=== PATIENT | male | born 1980 | race Two or more races ===

== ENCOUNTER 2017-02-08 20:51 | Observation (INO) | payer OTHER ==
--- NOTE | 2017-02-08 21:18 | PDOC ---
Rapid Medical Evaluation Chief Complaint: Chest Pain Time Seen by Provider: 02/08/17 21:04 Medical Evaluation: Allergies Allergy/AdvReac Type Severity Reaction Status Date / Time No Known Allergies Allergy Verified 02/08/17 21:03 Vital Signs Temp Pulse Resp BP Pulse Ox 98.1 F 99 H 20 146/93 98 02/08/17 21:04 02/08/17 21:04 02/08/17 21:04 02/08/17 21:04 02/08/17 21:04 02/08/17 21:09 I have performed a brief in-person evaluation of this patient. The patient presents with a chief complaint of left sided numbness and chest pain for 2 hours. Pertinent physical exam findings: Neuro: decreased sensation to left upper and lower extremities. Difficulty with rapid alternating movements with left upper extremity. Rapid alternating movements of right hand WNL. PULM: Respirations even and unlabored. CTAB. Speaking full sentences. Cards: S1S2 present. RRR. No murmur, rub or gallop. I have ordered the the following: CBC, CMP, PT/INR, UA, T&S, lipid panel, BGM, Stat head CT The patient will proceed to the ED for further evaluation.
[2017-02-08 21:46] LABS: BASOPHIL 0.8 % (0-2.0); EOSINOPHIL 5.3 % (0-4.5); MCH 30.1 pg (25.7-33.7); MCHC 33.8 g/dl (32.0-35.9); MEAN CELL VOLUME 89.3 fl (80-96); MEAN PLT VOLUME 9.4 fl (7.5-11.1); NEUTROPHILS 57.3 % (42.8-82.8); PLATELET COUNT 220 K/MM3 (134-434); RDW 13.4 % (11.9-15.9); WHITE BLOOD COUNT 6.8 K/mm3 (4.0-10.0)
[2017-02-08 22:07] LABS: PROTHROMBIN TIME (PATIENT) 11.3 SEC (9.98-11.88)
[2017-02-08 22:11] LABS: ALBUMIN 3.7 g/dl (3.4-5.0); ANION GAP 7 (8-16); BILIRUBIN,TOTAL 0.3 mg/dL (0.2-1.0); CALCIUM 8.4 mg/dL (8.5-10.1); CHOLESTEROL 201 mg/dL (50-200); CO2 27 mmol/L (21-32); CREATININE 1.3 mg/dL (0.7-1.3); GLUCOSE,RANDOM 122 mg/dL (74-106); SGOT/AST 19 U/L (15-37); SGPT/ALT 27 U/L (12-78); TOT PROT 7.4 g/dl (6.4-8.2)
[2017-02-08 22:12] LABS: ALK PHOS 66 U/L (45-117)
[2017-02-08 23:11] LABS: TROPONIN I 0.02 ng/ml (0.00-0.05)
[2017-02-08] MEDS ORDERED: ASPIRIN 81 MG CHEWABLE TABLETS PO ONE (23:22)
--- NOTE | 2017-02-09 00:03 | PDOC ---
History of Present Illness <Chato Christianson - Last Filed: 02/09/17 01:21> <Tyra Dixon - Last Filed: 02/09/17 01:31> - General Chief Complaint: Chest Pain Stated Complaint: CHEST PAIN Time Seen by Provider: 02/08/17 21:04 - History of Present Illness Initial Comments: 02/09/17 00:03 Patient is a 36 y/o M with past medical history of nonischemic cardiomyopathy, chronic systolic heart failure who presents with left sided chest/axillary pain , sharp and stabbing in character, lasting for the past several hours, nonpleuritic, intermittent, with associated left forearm numbness. Denies nausea , vomiting, diarrhea. SHx: occasional alcohol use (Tyra Dixon) Past History - Past Medical History Asthma: Yes Cardiac Disorders: Yes COPD: No - Family Disease History Family Disease History: CA: Mother - Suicide/Smoking/Psychosocial Hx Smoking History: Never smoked Have you smoked in the past 12 months: No Information on smoking cessation initiated: No Hx Alcohol Use: No Drug/Substance Use Hx: No Substance Use Type: None <Chato Christianson - Last Filed: 02/09/17 01:21> <Tyra Dixon - Last Filed: 02/09/17 01:31> - Past Medical History Allergies/Adverse Reactions: Allergies Allergy/AdvReac Type Severity Reaction Status Date / Time No Known Allergies Allergy Verified 02/08/17 21:03 Home Medications: Ambulatory Orders Lisinopril [Prinivil] 10 mg PO DAILY 02/08/17 Metoprolol Tartrate [Lopressor] 50 mg PO DAILY 02/08/17 Review of Systems <Chato Christianson - Last Filed: 02/09/17 01:21> <Tyra Dixon - Last Filed: 02/09/17 01:31> - Review of Systems Comments:: 02/09/17 00:03 CONSTITUTIONAL: No fever, no chills, no fatigue EYES: No visual changes ENT: No ear pain, no sore throat CARDIOVASCULAR: (+) left sided chest/axillary pain. No palpitations RESPIRATORY: No cough, no SOB GI: No abdominal pain, no nausea, no vomiting, no constipation, no diarrhea GENITOURINARY: No dysuria, no frequency, no hematuria MUSCULOSKELETAL: No back pain, no joint pain, no myalgias SKIN: No rash NEURO: (+) left arm numbness. No headache (Tyra Dixon) *Physical Exam <Chato Christianson - Last Filed: 02/09/17 01:21> <Tyra Dixon - Last Filed: 02/09/17 01:31> - Vital Signs Last Vital Signs Temp Pulse Resp BP Pulse Ox 98.1 F 99 H 20 146/93 100 02/08/17 21:04 02/08/17 21:04 02/08/17 21:04 02/08/17 21:04 02/08/17 21:12 - Physical Exam Comments: 02/09/17 00:04 CONSTITUTIONAL: Well-appearing; well-nourished; in no apparent distress HEAD: Normocephalic; atraumatic EYES: PERRL; EOM intact ENMT: External appears normal; normal oropharynx NECK: Supple; nontender; no cervical lymphadenopathy CARD: Normal S1, S2; no murmurs, rubs, or gallops RESP: Normal chest excursion with respiration; breath sounds clear and equal bilaterally; no wheezes, rhonchi, or rales ABD: Soft, non-distended; non-tender; no palpable organomegaly, no palpable hernias EXT: Normal ROM in all four extremities; non-tender to palpation; distal pulses intact SKIN: Warm, dry, no rash NEURO: No focal neurological deficiencies. (Tyra Dixon) Heart Score/ECG Review - History History: Slightly suspicious - Electrocardiogram EKG: Non specific repolarization disturbance - Age Age: </= 45 - Risk Factors Risk Factors Heart Score: Yes Hx Hypercholesterolemia Based on the list above the patient has:: 1-2 risk factors - Troponin Troponin: </= normal limit - Score Heart Score - Total: 2 <Chato Christianson - Last Filed: 02/09/17 01:21> <Tyra Dixon - Last Filed: 02/09/17 01:31> #1 02/09/17 01:31 Sinus rhythm with occasional premature ventricular complexes. Low voltage QRS. T wave abnormality, consider inferolateral ischemia. (Tyra Dixon) ED Treatment Course - LABORATORY CBC & Chemistry Diagram: 02/08/17 21:31 02/08/17 21:31 <Chato Christianson - Last Filed: 02/09/17 01:21> - LABORATORY CBC & Chemistry Diagram: 02/08/17 21:31 02/08/17 21:31 <Tyra Dixon - Last Filed: 02/09/17 01:31> - ADDITIONAL ORDERS Additional order review: Laboratory Results 02/08/17 02/08/17 02/08/17 22:45 22:20 21:31 PT with INR INR Sodium Potassium Chloride Carbon Dioxide Anion Gap BUN Creatinine Creat Clearance w eGFR POC Glucometer Random Glucose Calcium Magnesium 2.0 Total Bilirubin AST ALT Alkaline Phosphatase Creatine Kinase 245 Creatine Kinase Index 0.6 CK-MB (CK-2) 1.535 Troponin I 0.02 Total Protein Albumin Triglycerides Cholesterol Total LDL Cholesterol HDL Cholesterol Blood Type O POSITIVE Antibody Screen Negative 02/08/17 02/08/17 02/08/17 21:31 21:31 21:31 PT with INR 11.30 INR 1.00 Sodium 140 Potassium 3.7 Chloride 106 Carbon Dioxide 27 Anion Gap 7 L BUN 11 Creatinine 1.3 Creat Clearance w eGFR > 60 POC Glucometer Random Glucose 122 H D Calcium 8.4 L Magnesium Total Bilirubin 0.3 D AST 19 D ALT 27 D Alkaline Phosphatase 66 D Creatine Kinase Creatine Kinase Index CK-MB (CK-2) Troponin I Total Protein 7.4 Albumin 3.7 Triglycerides 145 Cholesterol 201 H Total LDL Cholesterol 113 H HDL Cholesterol 57 Blood Type Antibody Screen 02/08/17 21:12 PT with INR INR Sodium Potassium Chloride Carbon Dioxide Anion Gap BUN Creatinine Creat Clearance w eGFR POC Glucometer 113.97276 Random Glucose Calcium Magnesium Total Bilirubin AST ALT Alkaline Phosphatase Creatine Kinase Creatine Kinase Index CK-MB (CK-2) Troponin I Total Protein Albumin Triglycerides Cholesterol Total LDL Cholesterol HDL Cholesterol Blood Type Antibody Screen 02/08/17 02/08/17 21:31 21:12 RBC 4.09 MCV 89.3 MCHC 33.8 RDW 13.4 MPV 9.4 Neutrophils % 57.3 Lymphocytes % 27.5 D Monocytes % 9.1 Eosinophils % 5.3 H Basophils % 0.8 POC Glucometer 113.11136 - Medications Given in the ED: ED Medications Discontinued Medications Generic Name Dose Route Start Last Admin Trade Name Freq PRN Reason Stop Dose Admin Aspirin 162 mg 02/08/17 23:22 02/09/17 00:21 Asa - PO 02/08/17 23:23 162 mg ONCE ONE Administration Medical Decision Making <Chato Christianson - Last Filed: 02/09/17 01:21> <Tyra Dixon - Last Filed: 02/09/17 01:31> - Medical Decision Making 02/09/17 01:23 36-year-old male with history of nonischemic cardiomyopathy, diffuse left ventricular hypokinesis by echo in 2013 with calculated EF of 40% complains of atypical left-sided chest discomfort with left arm paresthesias for the past several hours prior to arrival. EKG reveals no evidence of acute ischemia, persistent T wave inversions are noted anteriorly and laterally, low-voltage QRS is noted throughout. Chest x-ray reveals no evidence of cardiomegaly/ effusion/infiltrate. First set of cardiac enzymes is within normal limit. Heart score is noted to be 2. Will place and telemetry of with cardiology consultation further evaluation and treatment. (Chato Christianson) *DC/Admit/Observation/Transfer - Discharge Dispostion Admit: Yes <Chato Christianson - Last Filed: 02/09/17 01:21> <Tyra Dixon - Last Filed: 02/09/17 01:31> Diagnosis at time of Disposition: Chest pain Qualifiers: Chest pain type: unspecified Qualified Code(s): R07.9 - Chest pain, unspecified Cardiomyopathy Qualifiers: Cardiomyopathy type: unspecified Qualified Code(s): I42.9 - Cardiomyopathy, unspecified - Attestations Scribe Attestion: 02/09/17 00:04 Documentation prepared by Tyra Dixon, acting as medical staff credentialing coordinator for Chato Christianson MD. (Tyra Dixon) Physician Attestion: 02/09/17 01:21 The documentation was prepared by the scribe under my direct supervision. I have reviewed the documentation which correctly represents the findings, medical decision-making and critical action taken by me. (Chato Christianson)
--- NOTE | 2017-02-09 02:40 | HP ---
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 Patient noticed a sharp pain while at rest, transient lasting a few seconds, non-radiating and self limiting with no known precipitating factors. There was no associated n/v,BUTT, no SOB, no seizures, loss of consciousness or weakness of any part of his body, but he noticed an associated transient numbness of the distal aspect of his LUE, but no difficulty moving any part of his body. There was no change in his speech. The incidence was witnessed by his who asked him to present at the ER. Pt has never had similar symptoms in the past. Patient is unaware of any prior cardiac event in the past, as his cardiac diagnosis was picked up on a routine physical. He has not increased his physical activity level of late, was active in the gym in November but currently works two jobs and has not been that active. No hx of fever, no cough, no abdominal pain, leg swelling or weight gain, no dysuria. ER course was notable for: (1) CT head--ve (2) EKG- Sinus rhythm, QTc-414, with occassional PVCs, Twave abnormality, consider inferolateral ischemia (similar to 2014) (3) trops x1--ve 4) ASA-162mg -given 5) CXR Recent Travel: None PAST MEDICAL HISTORY: non ischemic cardiomyopathy, chronic systolic heart failure, asthma PAST SURGICAL HISTORY: None Social History: Lives with Smoking:Never Alcohol:Occasional (last drink Monday) Drugs: Not current user Family History: Mother of Lung cancer at 41 Siblings healthy- no heart disease Preventive: Had colonoscopy September 2016- pt says was normal Did not get flu shot Allergies No Known Allergies Allergy (Verified 02/08/17 21:03) HOME MEDICATIONS: Home Medications Medication Instructions Recorded Lisinopril [Prinivil] 10 mg PO DAILY 02/08/17 Metoprolol Tartrate [Lopressor] 50 mg PO DAILY 02/08/17 REVIEW OF SYSTEMS CONSTITUTIONAL: Absent: fever, chills, diaphoresis, generalized weakness, malaise, loss of appetite, weight change HEENT: Absent: rhinorrhea, nasal congestion, throat pain, throat swelling, difficulty swallowing, mouth swelling, ear pain, eye pain, visual changes CARDIOVASCULAR: Absent: chest pain+, syncope, palpitations, irregular heart rate, lightheadedness, peripheral edema RESPIRATORY: Absent: cough, shortness of breath, dyspnea with exertion, orthopnea, wheezing, stridor, hemoptysis GASTROINTESTINAL: Absent: abdominal pain, abdominal distension, nausea, vomiting, diarrhea, constipation, melena, hematochezia GENITOURINARY: Absent: dysuria, frequency, urgency, hesitancy, hematuria, flank pain, genital pain MUSCULOSKELETAL: Absent: myalgia, arthralgia, joint swelling, back pain, neck pain SKIN: Absent: rash, itching, pallor HEMATOLOGIC/IMMUNOLOGIC: Absent: easy bleeding, easy bruising, lymphadenopathy, frequent infections ENDOCRINE: Absent: unexplained weight gain, unexplained weight loss, heat intolerance, cold intolerance NEUROLOGIC: Absent: headache, focal weakness or paresthesias+, dizziness, unsteady gait, seizure, mental status changes, bladder or bowel incontinence PSYCHIATRIC: Absent: anxiety, depression, suicidal or homicidal ideation, hallucinations. PHYSICAL EXAMINATION Initial Vital Signs Temp Pulse Resp BP Pulse Ox 98.1 F 99 H 20 146/93 98 02/08/17 21:04 02/08/17 21:04 02/08/17 21:04 02/08/17 21:04 02/08/17 21:04 GENERAL: Pleasant gentleman, awake, alert, and fully oriented, in no acute distress. HEAD: Normal with no signs of trauma. EYES: Pupils equal, round and reactive to light, extraocular movements intact, sclera anicteric, conjunctiva clear. No lid lag. EARS, NOSE, THROAT: oropharynx clear without exudates, no deviation of the tongue or uvula. Moist mucous membranes. NECK: Normal range of motion, supple,no JVD, no carotid bruit. LUNGS: Breath sounds equal, clear to auscultation bilaterally. No wheezes, and no crackles. No accessory muscle use. HEART: Tachycardic, S1 and S2, irregular. LLSB 2/6 systolic murmur , no change with inspiration, increased with leg lift ABDOMEN: Soft, nontender, not distended, normoactive bowel sounds, no guarding, no rebound, no masses. MUSCULOSKELETAL: Normal range of motion at all joints. UPPER EXTREMITIES: 2+ pulses, warm, well-perfused. No cyanosis. No clubbing. No peripheral edema. LOWER EXTREMITIES: 2+ pulses, warm, well-perfused. No calf tenderness. No peripheral edema. NEUROLOGICAL: Normal power, tone, reflexes and sensation globally. Normal speech. PSYCHIATRIC: Cooperative. Good eye contact. Appropriate mood and affect. ASSESSMENT/PLAN: #Atypical chest pain R/O ACS -Non exertional, no associated SOB, sharp in nature, left side of chest, No acute EKG changes -pt has non ischemic cardiomyopathy -follows a cooker sulfate -ASA- given -resume metoprolol 50mg daily -resume lisinopril 10mg daily -Cardiology consult -echo -trops x1, repeat - continuos cardiac monitoring -CXR- negative -TSH -Monitor electrolytes #Numbness of LUE -transient R/O TIA -CT head--ve -Neuro exam -monitor #Non ischemic cardiomyopathy Continue metoprolol and lisinopril Monitor Counseling on following up with his cooker sulfate #Hyperlipidemia Not on statins Diet and exercise counseling #Asthma Not in acute exacerbation Uses ventolin at home PRN Monitor #Hyperglycemia BGMs #Elevated blood pressure Continue metoprolol and lisinopril #FEN Oral fluids Monitor electrolytes Regular diet #Prophylaxis Early ambulation Monitor #Dispo Obs-Tele Visit type - Emergency Visit Emergency Visit: Yes ED Registration Date: 02/09/17 Care time: The patient presented to the Emergency Department on the above date and was hospitalized for further evaluation of their emergent condition. - New Patient This patient is new to me today: Yes Date on this admission: 02/09/17 - Critical Care Critical Care patient: No
--- NOTE | 2017-02-09 03:40 | PN ---
Teaching Attending Note Name of Resident: Yesenia Shoemaker ATTENDING PHYSICIAN STATEMENT I saw and evaluated the patient. I reviewed the resident's note and discussed the case with the resident. I agree with the resident's findings and plan as documented. SUBJECTIVE: 36 y/o male with h/o dilated cardiomyopathy presented to ED with compliant of left sided chest pain for few seconds at rest while watching TV pain radiated to left arm. Denies palpitations, nausea, or diaphoresis. No dyspnea on exertion, orthopnea or decreased exercise tolerance. Last ECHO 2013 reported EF 40%. OBJECTIVE: GEN: A&Ox3 in NAD HEENT: NC, AT, PERRLA, EOMI, oral mucosa moist, no JVD LUNGS: CTA, no wheezing CVS: RRR, S1, S2 no murmur appreciated Abd: Soft, NT, ND, BS+ Ext: nl rom , no edema CBCD WBC 6.8 K/mm3 (4.0-10.0) 02/08/17 21:31 RBC 4.09 M/mm3 (4.00-5.60) 02/08/17 21:31 Hgb 12.3 GM/dL (11.7-16.9) D 02/08/17 21:31 Hct 36.6 % (35.4-49) D 02/08/17 21:31 MCV 89.3 fl (80-96) 02/08/17 21:31 MCHC 33.8 g/dl (32.0-35.9) 02/08/17 21:31 RDW 13.4 % (11.9-15.9) 02/08/17 21:31 Plt Count 220 K/MM3 (134-434) 02/08/17 21:31 MPV 9.4 fl (7.5-11.1) 02/08/17 21:31 CMP Sodium 140 mmol/L (136-145) 02/08/17 21:31 Potassium 3.7 mmol/L (3.5-5.1) 02/08/17 21:31 Chloride 106 mmol/L (98-107) 02/08/17 21:31 Carbon Dioxide 27 mmol/L (21-32) 02/08/17 21:31 Anion Gap 7 (8-16) L 02/08/17 21:31 BUN 11 mg/dL (7-18) 02/08/17 21:31 Creatinine 1.3 mg/dL (0.7-1.3) 02/08/17 21:31 Creat Clearance w eGFR > 60 (>60) 02/08/17 21:31 Random Glucose 122 mg/dL (74-106) H D 02/08/17 21:31 Calcium 8.4 mg/dL (8.5-10.1) L 02/08/17 21:31 Total Bilirubin 0.3 mg/dL (0.2-1.0) D 02/08/17 21:31 AST 19 U/L (15-37) D 02/08/17 21:31 ALT 27 U/L (12-78) D 02/08/17 21:31 Alkaline Phosphatase 66 U/L (45-117) D 02/08/17 21:31 Total Protein 7.4 g/dl (6.4-8.2) 02/08/17 21:31 Albumin 3.7 g/dl (3.4-5.0) 02/08/17 21:31 CARDIAC ENZYMES Creatine Kinase 245 IU/L (39-308) 02/08/17 22:20 Troponin I 0.02 ng/ml (0.00-0.05) 02/08/17 22:20 ASSESSMENT AND PLAN: Chest pain r/o ACS 2 sets of troponins negative, ACS ruled out and presentation is atypical. ECHO and cardiology evaluation. Aspirin given. Continue home medications lisinopril and metoprolol and consider adding statin.
[2017-02-09 04:25] VITALS: BMI 25.7
--- NOTE | 2017-02-09 06:38 | HP ---
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 Pain is new, sharp and stabbing, intermittent , not associated with respiration and w/o agravating or alleviating factors. It started while at rest. Patient denies diaphoresis, palpitations, sob, cough, recent weight gain, poor appetite or LE edema. His last TTE was in 2013 EF 40%. He last cardiology visit was last year. He is compliant with home cardiac meds. SHx: occasional alcohol use ER course was notable for: (1)labs (2)ekg, cxr (3)asa Recent Travel:denies PAST MEDICAL HISTORY:as above PAST SURGICAL HISTORY: cardiac cath Social History:lives with Smoking:denies Alcohol: heady drinking for 3 years in early 's. now drinks occasionally Drugs: denies Family History: Allergies No Known Allergies Allergy (Verified 02/08/17 21:03) HOME MEDICATIONS: Home Medications Medication Instructions Recorded Lisinopril [Prinivil] 10 mg PO DAILY 02/08/17 Metoprolol Tartrate [Lopressor] 50 mg PO DAILY 02/08/17 REVIEW OF SYSTEMS CONSTITUTIONAL: Absent: fever, chills, malaise, loss of appetite, weight change HEENT: Absent: rhinorrhea, nasal congestion, throat pain CARDIOVASCULAR: Absent: syncope, palpitations, irregular heart rate, lightheadedness, peripheral edema RESPIRATORY: Absent: cough, shortness of breath, dyspnea with exertion, orthopnea, wheezing, stridor, hemoptysis GASTROINTESTINAL: Absent: abdominal pain, abdominal distension, nausea, vomiting, diarrhea, constipation, melena, hematochezia GENITOURINARY: Absent: dysuria MUSCULOSKELETAL: Absent:back pain, neck pain SKIN: Absent: rash, itching, pallor HEMATOLOGIC/IMMUNOLOGIC: Absent: easy bleeding, easy bruising ENDOCRINE: Absent: unexplained weight gain, unexplained weight loss, heat intolerance, cold intolerance NEUROLOGIC: Absent: headache, focal weakness PSYCHIATRIC: Absent: anxiety, depression PHYSICAL EXAMINATION Vital Signs - 24 hr 02/09/17 02/09/17 02:59 03:20 Temperature 97.9 F Pulse Rate 87 Pulse Rate [ 83 Apical] Respiratory 18 18 Rate Blood Pressure 127/87 Blood Pressure 141/73 [Right Arm] O2 Sat by Pulse 98 98 Oximetry (%) GENERAL: Awake, alert, and fully oriented, in no acute distress. HEAD: Normal with no signs of trauma. EYES: Pupils equal, round and reactive to light, extraocular movements intact, sclera anicteric, conjunctiva clear. No lid lag. EARS, NOSE, THROAT: Moist mucous membranes. NECK: supple without JVD LUNGS: Breath sounds equal, clear to auscultation bilaterally. HEART: Regular rate and rhythm, normal S1 and S2 ABDOMEN: Soft, nontender, not distended, normoactive bowel sounds, no guarding, no rebound, no masses. MUSCULOSKELETAL: No CVA tenderness. UPPER EXTREMITIES: 2+ pulses, warm, well-perfused. No peripheral edema. LOWER EXTREMITIES: 2+ pulses, warm, well-perfused. No calf tenderness. No peripheral edema. NEUROLOGICAL: Cranial nerves II-XII grossly intact. Normal speech. PSYCHIATRIC: Cooperative. Good eye contact. SKIN: Warm, dry Laboratory Results - last 24 hr 02/09/17 03:55 Troponin I 0.02 ASSESSMENT/PLAN: This is a 36 yo M with PMH of idiopathic nonischemic cardiomyopathy with systolic heart failure (cath negative, dx 2010), who presents with left sided CP radiating to L arm (numbness). Chest pain in setting of nonischemic cardiomyopathy with moderately reduced EF -EKG unremarkable for acs, no change from prior -trop neative x1; trend one more -likely musculoskeletal -tele monioring -cardio consult -TTE -continue beta michael, acei -low na diet Dispo: obs tele Problem List - Problem (1) Cardiomyopathy Code(s): I42.9 - CARDIOMYOPATHY, UNSPECIFIED Qualifiers: Cardiomyopathy type: unspecified Qualified Code(s): I42.9 - Cardiomyopathy, unspecified; I42.9 - Cardiomyopathy, unspecified; I42.9 - Cardiomyopathy, unspecified; I42.9 - Cardiomyopathy, unspecified (2) Chest pain Code(s): R07.9 - CHEST PAIN, UNSPECIFIED Qualifiers: Chest pain type: unspecified Qualified Code(s): R07.9 - Chest pain, unspecified; R07.9 - Chest pain, unspecified (3) Costochondral chest pain Code(s): R07.1 - CHEST PAIN ON BREATHING Visit type - Emergency Visit Emergency Visit: Yes ED Registration Date: 02/09/17 Care time: The patient presented to the Emergency Department on the above date and was hospitalized for further evaluation of their emergent condition. - New Patient This patient is new to me today: Yes Date on this admission: 02/09/17 - Critical Care Critical Care patient: No
[2017-02-09 07:04] LABS: MCH 29.9 pg (25.7-33.7); MCHC 33.6 g/dl (32.0-35.9); MEAN PLT VOLUME 9.4 fl (7.5-11.1); PLATELET COUNT 192 K/MM3 (134-434); RDW 13.7 % (11.9-15.9); WHITE BLOOD COUNT 5.4 K/mm3 (4.0-10.0)
[2017-02-09 07:46] LABS: ANION GAP 7 (8-16); CALCIUM 8.3 mg/dL (8.5-10.1); CO2 29 mmol/L (21-32); CREATININE 1.2 mg/dL (0.7-1.3); GLUCOSE,RANDOM 83 mg/dL (74-106); MAGNESIUM 2.2 mg/dL (1.8-2.4); PHOSPHOROUS 4.4 mg/dL (2.5-4.9)
[2017-02-09] MEDS ORDERED: LISINOPRIL 10 MG TABLET (FP) PO SCH (10:00)
[2017-02-09] MEDS ORDERED: METOPROLOL TARTRATE 50 MG TABLET (FP) PO SCH (10:00)
[2017-02-09 10:23] LABS: URINE APPEARANCE CLEAR; URINE BILIRUBIN NEGATIVE (NEGATIVE); URINE BLOOD NEGATIVE (NEGATIVE); URINE COLOR LTYELLOW; URINE GLUCOSE (UA) NEGATIVE (NEGATIVE); URINE KETONE NEGATIVE (NEGATIVE); URINE NITRITE NEGATIVE (NEGATIVE); URINE PROTEIN NEGATIVE (NEGATIVE); URINE UROBILINOGEN NEGATIVE mg/dL (0.2-1.0)
[2017-02-09 10:38] LABS: THYROID STIMULATING HORMONE 2.34 uIU/ml (0.358-3.74)
[2017-02-09 13:19] VITALS: BP 102/57; PULSE 86; TEMP 98
--- NOTE | 2017-02-09 15:00 | CON.CARD ---
Consult Consult Specialty:: Cardiology Referred by:: Sia Reason for Consultation:: chest pain - History of Present Illness Chief Complaint: Chest pain History of Present Illness: 36 year old male with a pmhx of nonischemic cardiomyopathy presenting with chest pain. Patient was home watching television when felt mild left sided near axilla chest which lasted seconds. [place] a tingling in left hand. Denies any sob, diaphoresis, or palpitations. No chest pain since. No chest pain recently and reports that he walks very often and long distances with no complaints. No pnd, orthopnea, or edema. Follows with Crushing Machine Operator yearly at [place]. Reports had cardiac cath when first diagnosed in 2010 and was told cath showed no blockages. EF 40% in past. 36 y/o male with h/o dilated cardiomyopathy presented to ED with compliant of left sided chest pain for few seconds at rest while watching TV pain radiated to left arm. Denies palpitations, nausea, or diaphoresis. No dyspnea on exertion , orthopnea or decreased exercise tolerance. Last ECHO 2013 reported EF 40%. - History Source History Provided By: Patient, Medical Record - Alcohol/Substance Use Hx Alcohol Use: No - Smoking History Smoking history: Never smoked Have you smoked in the past 12 months: No Home Medications - Allergies Allergies/Adverse Reactions: Allergies Allergy/AdvReac Type Severity Reaction Status Date / Time No Known Allergies Allergy Verified 02/08/17 21:03 - Home Medications Home Medications: Ambulatory Orders Lisinopril [Prinivil] 10 mg PO DAILY 02/08/17 Metoprolol Tartrate [Lopressor] 50 mg PO DAILY 02/08/17 Vital Signs: Vital Signs Temperature 98 F 02/09/17 13:15 Pulse Rate 86 02/09/17 13:15 Respiratory Rate 16 02/09/17 13:15 Blood Pressure 102/57 02/09/17 13:15 O2 Sat by Pulse Oximetry (%) 98 02/09/17 03:20 Constitutional: Yes: No Distress Eyes: Yes: WNL HENT: Yes: Atraumatic Neck: Yes: Supple, Trachea Midline Respiratory: Yes: CTA Bilaterally Gastrointestinal: Yes: Normal Bowel Sounds, Soft Cardiovascular: Yes: Regular Rate and Rhythm JVD: No Carotid Bruit: No PMI: Non-Displaced Heart Sounds: Yes: S1, S2 Murmur: No: Systolic Murmur Edema: No - Other Data Labs, Other Data: CBC, BMP 02/09/17 05:28 02/09/17 05:28 INR, PTT INR 1.00 (0.82-1.09) 02/08/17 21:31 Troponin, BNP 02/09/17 03:55 Troponin I 0.02 Troponin, BNP 02/09/17 03:55 Troponin I 0.02 Imaging - Results Chest X-ray: Report Reviewed EKG: Image Reviewed Problem List - Problems (1) Cardiomyopathy Code(s): I42.9 - CARDIOMYOPATHY, UNSPECIFIED Qualifiers: Cardiomyopathy type: unspecified Qualified Code(s): I42.9 - Cardiomyopathy, unspecified; I42.9 - Cardiomyopathy, unspecified; I42.9 - Cardiomyopathy, unspecified; I42.9 - Cardiomyopathy, unspecified (2) Chest pain Code(s): R07.9 - CHEST PAIN, UNSPECIFIED Qualifiers: Chest pain type: unspecified Qualified Code(s): R07.9 - Chest pain, unspecified; R07.9 - Chest pain, unspecified Assessment/Plan 36 year old male with a pmhx of nonischemic cardiomyopathy presenting with chest pain. Patient was home watching television when felt mild left sided near axilla chest which lasted seconds. [place] a tingling in left hand. Denies any sob, diaphoresis, or palpitations. No chest pain since. No chest pain recently and reports that he walks very often and long distances with no complaints. No pnd, orthopnea, or edema. Follows with Crushing Machine Operator yearly at [place]. Reports had cardiac cath when first diagnosed in 2010 and was told cath showed no blockages. EF 40% in past. 1) Chest pain -Symptoms are very atypical and only lasted seconds. EKG sinus rhythm with inferolateral TWI but unchanged from previous ekgs in past CE's negative Walked several laps on floor with no issues or symptoms. CXR no acute pathology Echocardiogram with mild reduced LVEF 48%. No further cardiac work up at this time. Has follow up on 02/21/17 with his pharmacy technician program director 2) Chronic systolic CHF -No signs of chf on exam or cxr. Continue metoprolol 50mg and lisinopril 10mg as bp with no room to increase at this time. LVEF 48% on echo No arrhythmias on tele. Follow up with his pharmacy technician program director on 02/21/17 No further cardiac testing at this time. Please call back with any questions or concerns/clinical changes
--- NOTE | 2017-02-09 15:13 | DS ---
Physical Exam: SUBJECTIVE: Patient seen and examined OBJECTIVE: Vital Signs Period Temp Pulse Resp BP Sys/Carvajal Pulse Ox Last 24 Hr 97.9 F-98.1 F 82-87 16-18 102-141/57-87 98-98 PHYSICAL EXAM GENERAL: The patient is awake, alert, and fully oriented, in no acute distress. HEAD: Normal with no signs of trauma. EYES: PERRL, extraocular movements intact, sclera anicteric, conjunctiva clear. ENT: Ears normal, nares patent, oropharynx clear without exudates, moist mucous membranes. NECK: Trachea midline, full range of motion, supple. LUNGS: Breath sounds equal, clear to auscultation bilaterally, no wheezes, no crackles, no accessory muscle use. HEART: Regular rate and rhythm, S1, S2 without murmur, rub or gallop. ABDOMEN: Soft, nontender, nondistended, normoactive bowel sounds, no guarding, no rebound, no hepatosplenomegaly, no masses. EXTREMITIES: 2+ pulses, warm, well-perfused, no edema. NEUROLOGICAL: Cranial nerves II through XII grossly intact. Normal speech, gait not observed. PSYCH: Normal mood, normal affect. SKIN: Warm, dry, normal turgor, no rashes or lesions noted. LABS Laboratory Results - last 24 hr 02/09/17 02/09/17 02/09/17 03:55 05:28 05:28 WBC 5.4 RBC 3.89 L Hgb 11.6 L Hct 34.6 L MCV 89.0 MCH 29.9 MCHC 33.6 RDW 13.7 Plt Count 192 MPV 9.4 Sodium 142 Potassium 3.9 Chloride 106 Carbon Dioxide 29 Anion Gap 7 L BUN 13 Creatinine 1.2 Random Glucose 83 D Hemoglobin A1c % Calcium 8.3 L Phosphorus 4.4 Magnesium 2.2 Troponin I 0.02 TSH 2.34 Free T4 1.00 Urine Color Urine Appearance Urine pH Ur Specific [place] Urine Protein Urine Glucose (UA) Urine Ketones Urine Blood Urine Nitrite Urine Bilirubin Urine Urobilinogen 02/09/17 02/09/17 06:00 06:49 WBC RBC Hgb Hct MCV MCH MCHC RDW Plt Count MPV Sodium Potassium Chloride Carbon Dioxide Anion Gap BUN Creatinine Random Glucose Hemoglobin A1c % 5.5 Calcium Phosphorus Magnesium Troponin I TSH Free T4 Urine Color Ltyellow Urine Appearance Clear Urine pH 6.0 Ur Specific [place] 1.012 Urine Protein Negative Urine Glucose (UA) Negative Urine Ketones Negative Urine Blood Negative Urine Nitrite Negative Urine Bilirubin Negative Urine Urobilinogen Negative HOSPITAL COURSE: Date of Admission:02/09/17 Date of Discharge: 02/09/17 36 year old male with a pmhx of nonischemic cardiomyopathy presenting with chest pain. Patient was home watching television when felt mild left sided near axilla chest which lasted seconds. [place] a tingling in left hand. Denies any sob, diaphoresis, or palpitations. No chest pain since. No chest pain recently and reports that he walks very often and long distances with no complaints. No pnd, orthopnea, or edema. Follows with Brand Representative yearly at [place]. Reports had cardiac cath when first diagnosed in 2010 and was told cath showed no blockages. EF 40% in past. 1) Chest pain -Symptoms very atypical and only lasted seconds. -EKG sinus rhythm with inferolateral TWI but unchanged from previous ekgs in past -CE's negative -Walked several laps on floor with no issues or symptoms. -CXR no acute pathology -Echocardiogram with mild reduced LVEF 48%. -No further cardiac work up at this time. 2) Chronic systolic CHF -Echo: LV function mildly reduced, mild global hypokinesis; RV normal; mild TR; trace PI; LVEF 48% -No signs of chf on exam or cxr. -Continued metoprolol 50mg and lisinopril 10mg as bp with no room to increase at this time. -No arrhythmias on tele. Follow up with child psychology teacher on 02/21/17 Minutes to complete discharge: 35 Discharge Summary Reason For Visit: CHEST PAIN CARDIOMYOPATHY Current Active Problems Cardiomyopathy (Acute) Chest pain (Acute) Condition: Improved - Instructions Diet, Activity, Other Instructions: It is important for you to follow up with your child psychology teacher on 02/21/17. Return to the emergency department for any new or worsening symptoms. Disposition: HOME - Home Medications Comprehensive Discharge Medication List: Ambulatory Orders Lisinopril [Prinivil] 10 mg PO DAILY 02/08/17 Metoprolol Tartrate [Lopressor] 50 mg PO DAILY 02/08/17 This patient is new to me today: Yes Date on this admission: 02/10/17 Emergency Visit: Yes ED Registration Date: 02/09/17 Care time: The patient presented to the Emergency Department on the above date and was hospitalized for further evaluation of their emergent condition. Critical Care patient: No - Discharge Referral Referred to [facility] No
--- NOTE | 2017-02-09 17:03 | EKG ---
Test Reason : Blood Pressure : / mmHG Vent. Rate : 086 BPM Atrial Rate : 086 BPM P-R Int : 122 ms QRS Dur : 088 ms QT Int : 346 ms P-R-T Axes : 060 075 225 degrees QTc Int : 414 ms SINUS RHYTHM WITH OCCASIONAL PREMATURE VENTRICULAR COMPLEXES LOW VOLTAGE QRS T WAVE ABNORMALITY, CONSIDER INFEROLATERAL ISCHEMIA ABNORMAL ECG WHEN COMPARED WITH ECG OF 20-JAN-2014 07:23, PREMATURE VENTRICULAR COMPLEXES ARE NOW PRESENT Confirmed by GARIMA HOOKS MD ([id number]) on 02/09/2017 5:02:48 PM Referred By: Confirmed By:GARIMA HOOKS MD
== END 2017-02-09 16:48 | disposition home or self-care (01) ==
LOC: JER 20:51 → JERBED 02-09 01:29 → UNDOADMOB 02-09 01:36 → J2W 02-09 03:21
PROVIDERS: ADMIT Internal Medicine; ATTEND Nurse Practitioner Acute Care
DX: I42.9 Cardiomyopathy, unspecified (principal); R07.89 Other chest pain; R07.1 Chest pain on breathing; I50.22 Chronic systolic (congestive) heart failure; J45.909 Unspecified asthma, uncomplicated; R20.0 Anesthesia of skin; E78.5 Hyperlipidemia, unspecified; R73.9 Hyperglycemia, unspecified; R03.0 Elevated blood-pressure reading, without diagnosis of hypertension
CPT/HCPCS: 36415; 70450-TC; 71020-TC; 80048; 80053; 80061; 81003; 82550; 82553; 83036; 83721; 83735; 84100; 84439; 84443; 84484; 85025; 85027; 85610; 86850; 86900; 86901; 87086; 93005; 93010; 93306-TC; 99285-25; G0378

== ENCOUNTER 2021-07-09 00:54 | Inpatient (IN) | payer OTHER ==
[2021-07-09] MEDS ORDERED: DEXAMETHASONE SOD PHOSPHATE 10 MG/1 ML VIAL IVPUSH ONE (00:59)
[2021-07-09] MEDS ORDERED: ALBUTEROL SO4 0.083% IH SOL 2.5 MG/3 ML VIAL.NEB. NEB SCH (01:00)
[2021-07-09] MEDS ORDERED: MAGNESIUM SULF 50% (8.12 MEQ/2 ML-1 GM VIAL) IVPB ONE (01:01)
[2021-07-09] MEDS ORDERED: FUROSEMIDE 40 MG/4 ML INJECTABLE VIAL IVPUSH ONE (01:09)
[2021-07-09] MEDS ORDERED: NITROGLYCERIN SUBLINGUAL 1/150 0.4 MG TAB SL ONE (01:09)
[2021-07-09] MEDS ORDERED: NITROGLYCERIN SUBLINGUAL 1/150 0.4 MG TAB ONE (01:11)
[2021-07-09] MEDS ORDERED: MAGNESIUM SULFATE IN WATER 2 GM/50 ML IVPB IVPB ONE (01:12)
[2021-07-09] MEDS ORDERED: FUROSEMIDE 40 MG/4 ML INJECTABLE VIAL ONE (01:12)
[2021-07-09] MEDS: ALBUTEROL SO4 2.5/IPRATROPIUM 0.5 INH SOL 3 ML VIAL.NEB. NEB SCH ×3 (01:18→02:07)
[2021-07-09 01:29] LABS: VENOUS BASE EXCESS -2.6 mmol/L (-2-2); VENOUS O2 SATURATION 87.5 % (70-80); VENOUS PCO2 44.2 mmHg (38-52); VENOUS PH 7.339 (7.310-7.410)
[2021-07-09 01:31] LABS: BASO % 0.4 % (0-2.0); EOS % 1.3 % (0-4.5); HEMATOCRIT 43.2 % (35.4-49); HEMOGLOBIN 13.8 GM/dL (11.7-16.9); LYMPH % 20.7 % (8-40); MEAN CELL VOLUME 81.1 fl (80-96); MEAN PLT VOLUME 9.5 fl (7.5-11.1); MONO % 7.6 % (3.8-10.2); PLATELET COUNT 362 10^3/uL (134-434); RBC 5.33 M/mm3 (4.00-5.60); RDW 15.3 % (11.9-15.9); WHITE BLOOD COUNT 15.3 K/mm3 (4.0-10.0)
[2021-07-09 01:33] VITALS: BMI 25.8
[2021-07-09 01:51] LABS: CALCIUM 8.4 mg/dL (8.5-10.1)
[2021-07-09 01:52] LABS: ALBUMIN 3.2 g/dl (3.4-5.0); BLOOD UREA NITROGEN 14.2 mg/dL (7-18); MAGNESIUM 2.3 mg/dL (1.8-2.4)
[2021-07-09 01:55] LABS: CREATININE 1.5 mg/dL (0.55-1.3)
[2021-07-09 01:56] LABS: TOT PROT 7.8 g/dl (6.4-8.2)
[2021-07-09 01:57] LABS: BILIRUBIN,TOTAL 0.4 mg/dL (0.2-1)
[2021-07-09 02:00] LABS: ACTIVATED PTT 34.6 SECONDS (25.2-36.5); INR 1.07 (0.83-1.09); N-TERMINAL BNP 673.8 pg/ml (5-125); PROTHROMBIN TIME (PATIENT) 12.3 SEC (9.7-13.0)
[2021-07-09] MEDS ORDERED: AZITHROMYCIN IVPB 500 MG in DEXTROSE 5%-WATER - 250 ML IVPB ONE (02:00)
[2021-07-09] MEDS ORDERED: CEFTRIAXONE 1,000 MG in DEXTROSE 5%-WATER - 50 ML IVPB ONE (02:00)
[2021-07-09] MEDS ORDERED: CEFTRIAXONE 1 GM/50 ML BAG ONE (02:08)
[2021-07-09] MEDS ORDERED: ACETAMINOPHEN 1000 MG/100 ML BAG IVPB ONE (04:37)
[2021-07-09] MEDS ORDERED: AZITHROMYCIN IVPB 500 MG/250 ML BAG IVPB ONE (06:15)
[2021-07-09] MEDS ORDERED: ALBUTEROL SO4 HFA INHALER IH PRN (06:32)
[2021-07-09] MEDS ORDERED: INSULIN SLIDING SCALE (NOVOLOG) 1 VIAL SQ SCH (07:00)
[2021-07-09] MEDS ORDERED: ACETAMINOPHEN 325 MG TABLET (FP) PO PRN (07:03)
[2021-07-09] MEDS: APIXABAN 5 MG TABLET PO SCH ×2 (09:47→21:53)
[2021-07-09] MEDS ORDERED: PATIENT'S OWN MEDICATION (NON-FORMULARY) (Dapagliflozin Propanediol [Farxiga] 10 MG Tablet PO SCH (10:00)
[2021-07-09] MEDS ORDERED: AZITHROMYCIN IVPB 250 MG in DEXTROSE 5%-WATER - 250 ML IVPB SCH (10:00)
[2021-07-09] MEDS ORDERED: REMDESIVIR 200 MG in SODIUM CHLORIDE 250 ML IVPB ONE (11:00)
[2021-07-09] MEDS: EPLERENONE 25 MG TABLET PO SCH (11:21)
[2021-07-10] MEDS ORDERED: cefTRIAXone SODIUM 1 GM VIAL ONE (09:12)
[2021-07-10] MEDS ORDERED: DEXTROSE 5%-WATER - 50 ML IVPB ONE (09:12)
[2021-07-10 09:20] LABS: CALCIUM 8.6 mg/dL (8.5-10.1)
[2021-07-10 09:21] LABS: BASO % 0.3 % (0-2.0); BLOOD UREA NITROGEN 17.9 mg/dL (7-18); EOS % 0.2 % (0-4.5); HEMATOCRIT 34.8 % (35.4-49); HEMOGLOBIN 11.9 GM/dL (11.7-16.9); LYMPH % 11.8 % (8-40); MAGNESIUM 2.3 mg/dL (1.8-2.4); MCH 27.5 pg (25.7-33.7); MCHC 34.1 g/dl (32.0-35.9); MEAN CELL VOLUME 80.5 fl (80-96); MEAN PLT VOLUME 9.3 fl (7.5-11.1); MONO % 7.6 % (3.8-10.2); NEUT % 80.1 % (42.8-82.8); PLATELET COUNT 232 10^3/uL (134-434); RBC 4.32 M/mm3 (4.00-5.60); RDW 15.5 % (11.9-15.9); WHITE BLOOD COUNT 10.4 K/mm3 (4.0-10.0)
[2021-07-10 09:24] LABS: CREATININE 1.3 mg/dL (0.55-1.3); PHOSPHOROUS 3.4 mg/dL (2.5-4.9)
[2021-07-10 09:25] LABS: BILIRUBIN,TOTAL 0.6 mg/dL (0.2-1)
[2021-07-10 09:26] LABS: TOT PROT 6.6 g/dl (6.4-8.2)
[2021-07-10] MEDS ORDERED: DEXAMETHASONE SOD PHOSPHATE 10 MG/1 ML VIAL IVPUSH SCH (10:00)
[2021-07-10] MEDS: CEFTRIAXONE 1 GM in DEXTROSE 5%-WATER - 50 ML IVPB SCH (10:14)
[2021-07-10] MEDS: APIXABAN 5 MG TABLET PO SCH ×2 (10:14→21:21)
[2021-07-10] MEDS: EPLERENONE 25 MG TABLET PO SCH (10:15)
[2021-07-10] MEDS: DEXAMETHASONE SOD PHOSPHATE 10 MG/1 ML VIAL IVPUSH SCH (10:15)
[2021-07-10] MEDS: REMDESIVIR 100 MG in SODIUM CHLORIDE 250 ML IVPB SCH (11:00)
[2021-07-10] MEDS ORDERED: ALPRAZolam 1 MG TABLET PO ONE (13:54)
[2021-07-11 06:52] LABS: HEMATOCRIT 35.1 % (35.4-49); HEMOGLOBIN 11.5 GM/dL (11.7-16.9); MCH 26.5 pg (25.7-33.7); MCHC 32.7 g/dl (32.0-35.9); MEAN CELL VOLUME 81.1 fl (80-96); MEAN PLT VOLUME 9.6 fl (7.5-11.1); PLATELET COUNT 267 10^3/uL (134-434); RBC 4.32 M/mm3 (4.00-5.60); RDW 15.7 % (11.9-15.9); WHITE BLOOD COUNT 12.8 K/mm3 (4.0-10.0)
[2021-07-11 07:07] LABS: ALBUMIN 2.7 g/dl (3.4-5.0); CALCIUM 8.1 mg/dL (8.5-10.1)
[2021-07-11 07:10] LABS: CREATININE 1.3 mg/dL (0.55-1.3)
[2021-07-11 07:12] LABS: BILIRUBIN,TOTAL 0.2 mg/dL (0.2-1); TOT PROT 6.5 g/dl (6.4-8.2)
[2021-07-11] MEDS ORDERED: cefTRIAXone SODIUM 1 GM VIAL ONE (09:15)
[2021-07-11] MEDS ORDERED: DEXTROSE 5%-WATER - 50 ML IVPB ONE (09:15)
[2021-07-11] MEDS: CEFTRIAXONE 1 GM in DEXTROSE 5%-WATER - 50 ML IVPB SCH (09:54)
[2021-07-11] MEDS: DEXAMETHASONE SOD PHOSPHATE 10 MG/1 ML VIAL IVPUSH SCH (09:54)
[2021-07-11] MEDS: APIXABAN 5 MG TABLET PO SCH (09:54)
[2021-07-11] MEDS: EPLERENONE 25 MG TABLET PO SCH (09:55)
[2021-07-11] MEDS: REMDESIVIR 100 MG in SODIUM CHLORIDE 250 ML IVPB SCH (11:07)
[2021-07-11 15:46] VITALS: BP 127/76; PULSE 107; TEMP 97.5
== END 2021-07-11 16:19 | disposition home or self-care (01) | DRG 177 ==
LOC: JER 00:54 → JERBED 05:13 → J4S 07:33
PROVIDERS: ADMIT Hospitalist; ATTEND Internal Medicine
PROC: XW033E5 Introduction of Remdesivir Anti-infective into Peripheral Vein, Percutaneous Approach, New Technology Group 5 (ICD-10-PCS; principal; 2021-07-09)
DX: U07.1 COVID-19 (principal); J96.01 Acute respiratory failure with hypoxia; I50.23 Acute on chronic systolic (congestive) heart failure; J12.82 Pneumonia due to coronavirus disease 2019; I24.8 Other forms of acute ischemic heart disease; N17.9 Acute kidney failure, unspecified; I42.8 Other cardiomyopathies; I13.0 Hypertensive heart and chronic kidney disease with heart failure and stage 1 through stage 4 chronic kidney disease, or unspecified chronic kidney disease; N18.2 Chronic kidney disease, stage 2 (mild); J45.901 Unspecified asthma with (acute) exacerbation; Z79.01 Long term (current) use of anticoagulants; E11.9 Type 2 diabetes mellitus without complications; E78.5 Hyperlipidemia, unspecified; J45.909 Unspecified asthma, uncomplicated; I48.0 Paroxysmal atrial fibrillation; I49.3 Ventricular premature depolarization; N52.9 Male erectile dysfunction, unspecified
CPT/HCPCS: 36415; 71045-TC-FY; 71275-TC; 76604; 80053; 82570; 82728; 82803; 83036; 83615; 83735; 83880; 84100; 84484; 84540; 85025; 85027; 85379; 85610; 85730; 86140; 87040; 87804; 87807; 87899; 93005; 93010; 93308; 94761; 99285-25; C9399; C9803-CS; J1100; Q9967; U0003; U0005

== ENCOUNTER 2024-10-12 01:44 | Emergency (ER) | payer OTHER ==
[2024-10-12 01:51] VITALS: RESP 18; TEMP 98.4; BMI 25.7
[2024-10-12] MEDS ORDERED: IBUPROFEN 400 MG TABLET (FP) PO ONE (02:39)
[2024-10-12] MEDS ORDERED: DIPHTH,PERTUSS(ACELL),TET 0.5 ML DISP.SYRIN IM ONE (02:40)
[2024-10-12] MEDS: DIPHTH,PERTUSS(ACELL),TET 0.5 ML DISP.SYRIN IM ONE (02:53)
[2024-10-12] MEDS: IBUPROFEN 400 MG TABLET (FP) PO ONE (02:56)
[2024-10-12] MEDS ORDERED: LIDOCAINE 1%/EPI 1:100000 (20 ML MULTI DOSE VIAL) ONE (04:10)
[2024-10-12] MEDS: LIDOCAINE HCL 1%, 10 MG/ML (50 mL VIAL) SQ ONE (04:27)
[2024-10-12] MEDS ORDERED: ACETAMINOPHEN 325 MG TABLET (FP) ONE (04:47)
[2024-10-12] MEDS: ACETAMINOPHEN 500 MG TABLET (FP) PO ONE (04:51)
[2024-10-12 05:14] VITALS: BP 119/72; PULSE 89
== END 2024-10-12 05:00 | disposition home or self-care (01) ==
LOC: JER 01:44
PROC: 0HQ0XZZ Repair Scalp Skin, External Approach (ICD-10-PCS; principal; 2024-10-12)
PROC: 3E0234Z Introduction of Serum, Toxoid and Vaccine into Muscle, Percutaneous Approach (ICD-10-PCS; 2024-10-12)
DX: S01.01XA Laceration without foreign body of scalp, initial encounter (principal); Z23 Encounter for immunization; W22.8XXA Striking against or struck by other objects, initial encounter
CPT/HCPCS: 12001-25; 70450-TC; 90471; 90715; 99285-25